=== PATIENT | female | born 1995 | race Caucasian/White ===

== ENCOUNTER 2019-03-23 16:46 | Emergency (ER) | payer OTHER ==
[~2019-03-23] VITALS: Ht 170.2 cm; Wt 111.1 kg
[2019-03-23 16:50] VITALS: BP 141/86
[2019-03-23] MEDS ORDERED: IBUPROFEN 800800 M1 PO (18:58)
== END 2019-03-23 19:04 | disposition home or self-care (01) ==
LOC: ER 16:46
DX: M54.6 Pain in thoracic spine (principal); R51 Headache; V49.40XA Driver injured in collision with unspecified motor vehicles in traffic accident, initial encounter; Y93.89 Activity, other specified; Y92.89 Other specified places as the place of occurrence of the external cause; Y99.8 Other external cause status